=== PATIENT | male | born 1995 ===

== ENCOUNTER → 2018-12-16 | Outpatient (REF) | payer OTHER ==
[2018-12-16 15:30] LABS: PLATELET COUNT, AUTOMATED 182 K/uL (150-450)
== END ==
PROVIDERS: ATTEND Nurse Practitioner Family
DX: R10.9 Unspecified abdominal pain (principal)
CPT/HCPCS: 82040; 82247; 82310; 82374; 82435; 82565; 82947; 84075; 84132; 84155; 84295; 84450; 84460; 84520; 85025

== ENCOUNTER → 2018-12-16 | Outpatient (CLI) | payer OTHER ==
--- NOTE | 2018-12-16 16:14 | RADIOLOGY IMAGING REPORT ---
[place]AC[place] [facility] [place]IENT NAME: Reagan Ortega : 1995 MR: [id number] V: [id number] EXAM DATE: ORDERING PHYSICIAN: BEN RESENDEZ TECHNOLOGIST: Location: [facility] [place] Patient: Reagan Ortega : 1995 Visit/Account:[id number] Date of Sevice: 12/16/2018 US ABD LIMITED ULTRASOUND INDICATION: Left lower quadrant pain. COMPARISON: None available. FINDINGS: Grayscale and color Doppler ultrasound of the left and right lower quadrants. No suspicious mass, fluid collection, lymphadenopathy, or hernia. IMPRESSION: No suspicious mass, fluid collection, lymphadenopathy, or hernia in the right and left lo wer quadrant. Report Dictated By: Krzysztof Subramanian MD at 12/16/2018 4:04 PM Report E-Signed By: Krzysztof Subramanian MD at 12/16/2018 4:05 PM WSN:[id number]
== END ==
LOC: LAB 14:44
PROVIDERS: ATTEND Nurse Practitioner Family
DX: R10.9 Unspecified abdominal pain (principal)
CPT/HCPCS: 76705